=== PATIENT | male | born 1950 ===

== ENCOUNTER 2020-08-22 08:35 | Outpatient (CLI) | payer OTHER | END 2020-08-22 08:43 | disposition home or self-care (01) | LOC: RAD 08:35 | PROVIDERS: ATTEND Colon & Rectal Surgery | DX: J44.9 Chronic obstructive pulmonary disease, unspecified (principal); I51.7 Cardiomegaly; C18.5 Malignant neoplasm of splenic flexure; Z85.038 Personal history of other malignant neoplasm of large intestine ==

== ENCOUNTER 2020-08-27 07:24 | Outpatient (CLI) | payer OTHER | END 2020-08-27 08:27 | disposition home or self-care (01) | LOC: NUCLEAR 07:24 | PROVIDERS: ATTEND Internal Medicine Geriatric Medicine | DX: I11.9 Hypertensive heart disease without heart failure (principal); R01.1 Cardiac murmur, unspecified ==